=== PATIENT | female | born 1985 | race Two or more races ===

== ENCOUNTER 2022-07-27 16:43 | Inpatient (IN) | payer OTHER ==
[~2022-07-27] VITALS: Ht 152.4 cm; Wt 68.0 kg
[2022-07-31] MEDS ORDERED: PREVACID15 M1 (13:35)
== END 2022-08-03 09:11 | disposition home or self-care (01) | DRG 743 ==
LOC: O/R 08-02 10:09 → OB/GYN 08-02 10:45
PROVIDERS: ADMIT Obstetrics & Gynecology; ATTEND Obstetrics & Gynecology
PROC: 0DNW0ZZ Release Peritoneum, Open Approach (ICD-10-PCS; 2022-08-02)
PROC: 0USG0ZZ Reposition Vagina, Open Approach (ICD-10-PCS; 2022-08-02)
PROC: 0UQF0ZZ Repair Cul-de-sac, Open Approach (ICD-10-PCS; 2022-08-02)
PROC: 0TJB8ZZ Inspection of Bladder, Via Natural or Artificial Opening Endoscopic (ICD-10-PCS; 2022-08-02)
PROC: 0UT97ZZ Resection of Uterus, Via Natural or Artificial Opening (ICD-10-PCS; principal; 2022-08-02 11:15)
DX: N72 Inflammatory disease of cervix uteri (principal); N81.11 Cystocele, midline; N73.6 Female pelvic peritoneal adhesions (postinfective); Z20.822 Contact with and (suspected) exposure to COVID-19